=== PATIENT | male | born 1970 | race African-American/Black ===

== ENCOUNTER 2021-11-12 12:15 | Emergency (ER) | payer MEDICAID ==
[~2021-11-12] VITALS: Ht 177.8 cm; Wt 100.0 kg
[2021-11-12] MEDS ORDERED: AMLO5TAB88 PO (12:34)
[2021-11-12] MEDS ORDERED: LISI40TA13 PO (12:34)
[2021-11-12] MEDS ORDERED: GABA600T PO (12:34)
[2021-11-12] MEDS ORDERED: ATOR10TA69 PO (12:34)
[2021-11-12] MEDS ORDERED: ASPI-986 PO (12:34)
[2021-11-12] MEDS ORDERED: LEVE750T4 PO (12:34)
[2021-11-12 13:47] VITALS: BP 135/82
[2021-11-12 14:41] LABS: BASOPHILS % 0.8 % (0.0-2.0); EOSINOPHILS % 3.9 % (0.0-5.0); HEMATOCRIT. 35.9 % (42.0-52.0); HEMOGLOBIN. 12.4 g/dL (14.0-18.0); LYMPHOCYTES % 17.3 % (20.0-50.0); MEAN CORPUSCULAR HEMOGLOBIN 30.1 pg (28.0-32.0); MEAN CORPUSCULAR VOLUME 87.4 fL (80.0-94.0); MEAN PLATELET VOLUME 7.2 fl (7.4-10.4); MONOCYTES % 6.3 % (2.0-8.0); NEUTROPHILS % 71.7 % (40.0-76.0); PLATELET 327 x1000/uL (130-400); RED CELL DISTRIBUTION WIDTH 13.4 % (11.6-14.6)
[2021-11-12 14:48] LABS: CHLORIDE 110 mEq/L (98-107)
== END 2021-11-12 14:30 | disposition home or self-care (01) ==
LOC: ER 12:15
DX: R06.00 Dyspnea, unspecified (principal); M79.672 Pain in left foot; M79.671 Pain in right foot; E78.00 Pure hypercholesterolemia, unspecified; I10 Essential (primary) hypertension; Z86.73 Personal history of transient ischemic attack (TIA), and cerebral infarction without residual deficits; Z87.820 Personal history of traumatic brain injury; Z79.82 Long term (current) use of aspirin; Z88.8 Allergy status to other drugs, medicaments and biological substances; Z88.5 Allergy status to narcotic agent
CPT/HCPCS: 36415; 71045; 80053; 83880; 84484; 85025; 93005; 99285